=== PATIENT | female | born 1955 | race Caucasian/White ===

== ENCOUNTER 2020-09-04 06:59 | Day surgery (SDC) | payer OTHER, SELFPAY ==
[2020-09-02 13:47] VITALS: BMI 27.4
--- NOTE | 2020-09-03 09:14 | HO.ANESPROP2 ---
Documented by User: Darby Wheeler 09/03/20 09:17 HPI - Anesthesia Eval Consult details Narrative: 65yo F for Upper Endoscopy with Balloon Dilation and Colonoscopy PMFSH Past Medical History Medical History Anxiety Arthritis Depression History of anemia Hyperlipemia Hypothyroidism IBS (irritable bowel syndrome) PTSD (post-traumatic stress disorder) Seasonal allergies Surgical History Surgical History History of cholecystectomy History of esophagogastroduodenoscopy (EGD) Hx of appendectomy Hx of colonoscopy Social History Social History Smoking Status: Never smoker Use of substances other than those prescribed or required for medical reasons: No Are you DNR?: No Advance Directives: No Advance Directives Information Provided: No Advance Directives on File: No Meds Allergies Allergy/AdvReac Type Severity Reaction Status Date / Time codeine Allergy Severe Difficulty Verified 09/02/20 13:44 Breathing Home Medications Medication Instructions Recorded Confirmed Last Taken Type atorvastatin 1 tab PO BEDTIME 08/29/20 09/02/20 Unknown History bupropion HCl 1 tab PO QAM 08/29/20 08/29/20 Unknown History dicyclomine 1 tab PO QID 08/29/20 08/29/20 Unknown History levothyroxine 1 tab PO DAILY 08/29/20 08/29/20 Unknown History aripiprazole 2 tab PO QAM 09/02/20 09/02/20 Unknown History cholecalciferol (vitamin D3) 50 mcg PO DAILY 09/02/20 09/02/20 Unknown History [Vitamin D3] fluoxetine 1 cap PO QAM 09/02/20 09/02/20 Unknown History Exam Exam Date and Time: September 03, 2020 0914 Height,Weight and Vital Signs: Height 5 ft 3 in Weight 70.307 kg Pertinent Lab Results Pertinent Lab Results: Laboratory Tests 08/31/20 20:30 PT TNP INR TNP Assessment and Plan Assessment Anesthesia Assessment: Chart Reviewed Documented by User: Lien Cohen 09/04/20 08:02 PMFSH Past Medical History Medical History Anxiety Arthritis Depression History of anemia Hyperlipemia Hypothyroidism IBS (irritable bowel syndrome) PTSD (post-traumatic stress disorder) Seasonal allergies Surgical History Surgical History History of cholecystectomy History of esophagogastroduodenoscopy (EGD) Hx of appendectomy Hx of colonoscopy Social History Social History Smoking Status: Never smoker Use of substances other than those prescribed or required for medical reasons: No Are you DNR?: No Advance Directives: No Advance Directives Information Provided: No Advance Directives on File: No Meds Allergies Allergy/AdvReac Type Severity Reaction Status Date / Time codeine Allergy Severe Difficulty Verified 09/02/20 13:44 Breathing Home Medications Medication Instructions Recorded Confirmed Last Taken Type atorvastatin 1 tab PO BEDTIME 08/29/20 09/02/20 Unknown History bupropion HCl 1 tab PO QAM 08/29/20 08/29/20 Unknown History dicyclomine 1 tab PO QID 08/29/20 08/29/20 Unknown History levothyroxine 1 tab PO DAILY 08/29/20 08/29/20 Unknown History aripiprazole 2 tab PO QAM 09/02/20 09/02/20 Unknown History cholecalciferol (vitamin D3) 50 mcg PO DAILY 09/02/20 09/02/20 Unknown History [Vitamin D3] fluoxetine 1 cap PO QAM 09/02/20 09/02/20 Unknown History Exam Airway Mallampati Class: II TM Dist: >3cm Neck ROM: Full Assessment and Plan Assessment Anesthesia Assessment: Anesthesia Plan Discussed and Chart Reviewed Final Anesthetic Review NPO: Yes ASA Class: II Final Preanesthetic Review: No Changes in Pt Med Stat, Meds/Allgs Chart Reviewed, Consent Obtained/Reviewed and Anes Risks/Benef Reviewed Patient Risk: Low Procedure Risk: Low Assessment/Block/Sedation in SS: Assess/Block/Sedation-SS Anesthetic Plan Anesthetic Plan: MAC: Disposition: Standard PACU
[2020-09-04 07:45] VITALS: BP 150/71; PULSE 69; RESP 15; TEMP 36.7; O2SAT 96
[2020-09-04 07:46] VITALS: BP 150/71; PULSE 69; RESP 16; TEMP 36.7; O2SAT 96; BMI 27.4
[2020-09-04] MEDS: Lactated Ringers 1,000 ML 100 ML IVCONT (08:06)
[2020-09-04] MEDS: Sodium Phosphate,Mono-Dibasic 133 ML ENEMA PR (08:06)
--- NOTE | 2020-09-04 08:14 | PC.NURSE ---
fleet enema given. pt concerned that she did not have a bowel movement after taking her ducolax. dr baez aware and to give enema. Enema given, patient tolerated well. enema results, yellow liquid
[2020-09-04 09:35] VITALS: BP 152/69; PULSE 70; RESP 16; TEMP 36.7; O2SAT 97
--- NOTE | 2020-09-04 09:40 | PM.OP ---
Brief Operative Note Date of Service: 09/04/20 Pre-op diagnosis: Dysphagia, Screening Post-op diagnosis: other (Hiatal hernia, Gastric polyps, R/O EOE, Colon polyp) Procedure: EGD with biopsies and Balloon Dilation, Colonoscopy to the cecum and TI with biopsy and removal of polyp Surgeon: Ashok Garcia Anesthesia: MAC Was an Commercial Sewing Instructor used for this Procedure?: No Estimated blood loss (mL): 5.0 Pathology: other (A. Esophagus at 25cm B. Gastric polyps C. Ascending colon polyp) Condition: stable Disposition: PACU
[2020-09-04 09:49] VITALS: BP 136/62; PULSE 64; RESP 18; O2SAT 94
[2020-09-04 10:04] VITALS: BP 126/60; PULSE 62; RESP 18; O2SAT 98
--- NOTE | 2020-09-04 15:25 | OP_ITS ---
SURGEON: Ashok Garcia MD INDICATIONS: The patient presents for evaluation of intermittent dysphagia, personal history of colon polyps, and colorectal cancer screening. Full consent has been obtained from her for this, including risks of bleeding and perforation. PREOPERATIVE DIAGNOSIS: POSTOPERATIVE DIAGNOSIS: PROCEDURE PERFORMED: Esophagogastroduodenoscopy with balloon dilation of gastroesophageal junction and biopsies, and colonoscopy to the cecum and terminal ileum with biopsy and removal of polyp. ESTIMATED BLOOD LOSS: COMPLICATIONS: ANESTHESIA: Monitored anesthesia care. ASSISTANTS: SPECIMENS: PREOPERATIVE DIAGNOSES: Dysphagia, history of colon polyps, and colorectal cancer screening. POSTOPERATIVE DIAGNOSES: Dysphagia, history of colon polyps, and colorectal cancer screening, small hiatal hernia, rule out eosinophilic esophagitis, gastric polyps, colon polyp, diverticulosis, and internal and external hemorrhoids. DESCRIPTION OF PROCEDURE: The patient was placed in the left lateral decubitus position. The Olympus video gastroscope was passed in the posterior oropharynx and upper esophagus under direct vision. The scope was passed slowly into the distal esophagus. The gastroesophageal junction appeared at 35 cm. There was no sign of any esophagitis nor Paez's esophagus. There was no definitive stricture nor ring noted. The scope easily entered into the stomach. There was a small hiatal hernia. The scope was advanced to pylorus and the duodenum was cannulated to the descending portion. The duodenum including the bulb appeared normal without mass or ulceration. The scope was withdrawn back into the stomach. The gastric antrum and body appeared normal with good peristalsis. The scope was retroflexed visualizing the proximal stomach carefully, which appeared normal, without any mass or ulceration, other than some hyperplastic appearing gastric polyps. The scope was straightened. The scope was withdrawn back into the esophagus. Given her symptomatology, I did use a [employer] incremental balloon to dilate the gastroesophageal junction from an 18 mm to a 19 mm to a 20 mm balloon at the recommended pressure for between 30 and 60 seconds each. Post dilation, there was some heme noted. The entire esophagus was carefully inspected and appeared normal without any mucosal abnormalities, proximal esophageal rings, nor any other abnormalities. Biopsies were obtained at 25 cm. The scope was advanced back into the stomach. Biopsies were obtained from two of the gastric polyps. The scope was withdrawn back into the esophagus. The scope was withdrawn from the patient. She was turned around for the colonoscopy. The digital rectal exam revealed no abnormalities. The Olympus video pediatric colonoscope was entered into the rectum and advanced to the cecum with the assistance of abdominal wall pressure. Once in the cecum, I did identify normal-appearing cecal pouch with appendiceal orifice and a normal-appearing ileocecal valve. The terminal ileum was cannulated and appeared normal. Scope was withdrawn back in the colon. The entire cecum and ileocecal valve appeared normal. The scope was then slowly withdrawn assessing all mucosal surfaces carefully. Preparation was excellent. The ascending colon was a flat approximately 4 mm polyp, which was biopsied and completely removed with cold biopsy forceps. I did not visualize any other polyps, colitis, nor angiodysplasia. There was a mild amount of sigmoid diverticulosis. In the rectum, scope was retroflexed visualizing internal hemorrhoids, but no other pathology. The rectal mucosa appeared normal. The scope was straightened out and withdrawn from the patient. She tolerated both procedures well and was returned to the recovery area in stable condition. IMPRESSION: 1. Small hiatal hernia. 2. Gastric polyps. 3. Rule out eosinophilic esophagitis. 4. Status post balloon dilation of gastroesophageal junction. 5. Colon polyp. 6. Diverticulosis. 7. Internal and external hemorrhoids. PLAN: The results of the biopsy will be checked. I would recommend a repeat colonoscopy in 5 years. I will start her on omeprazole 20 mg daily in regard to today's procedure and her symptoms of dysphagia to treat any component of reflux and esophageal spasm. She was advised not to use any aspirin and NSAIDs for 1 week. She was advised to see me in 2 to 3 months for a followup visit. MD RAYO Jackson/BLU / [id number]
--- NOTE | 2020-09-04 16:13 | PC.NURSE ---
1010 AWAKE ALERT DENG PO MONITORS AND IVF DC ASST OOB CH STEADY IV DC DRESSED SELF AT BS CALL THORNTON IN REACH
== END 2020-09-04 11:06 | disposition home or self-care (01) ==
PROVIDERS: PCP Physician Assistant; Visit Provider Internal Medicine
PROC: (CPT 45380; principal; 2020-09-04 08:20)
PROC: 0DJD8ZZ Inspection of Lower Intestinal Tract, Via Natural or Artificial Opening Endoscopic (ICD-10-PCS; CPT 45378; 2020-09-04 08:20)
DX: Z12.11 Encounter for screening for malignant neoplasm of colon (principal); Z86.010 Personal history of colon polyps; D12.2 Benign neoplasm of ascending colon; K57.30 Diverticulosis of large intestine without perforation or abscess without bleeding; K64.8 Other hemorrhoids; K58.9 Irritable bowel syndrome, unspecified; R13.14 Dysphagia, pharyngoesophageal phase; K44.9 Diaphragmatic hernia without obstruction or gangrene; K20.80 Other esophagitis without bleeding; K31.7 Polyp of stomach and duodenum; Z90.49 Acquired absence of other specified parts of digestive tract
CPT/HCPCS: 45380; 43249; 43239; 36415; 88305; 88342; C1726

== ENCOUNTER 2022-07-01 09:13 | Outpatient (REF) | payer MEDICARE, SELFPAY ==
--- NOTE | ~2022-07-01 | FL_ITS ---
EXAMINATION: FL BARIUM SWALLOW CLINICAL INFORMATION: Esophageal dysphagia. COMPARISON: None TECHNIQUE: Barium swallow examination is performed using fluoroscopic evaluation in addition to multiple fluoroscopic spot views, including cine images during swallowing. The patient is imaged both upright and prone and using both thick and thin sulfate along with effervescent granules. Barium pill challenge also performed. Fluoroscopy time: 2.8 minutes DAP: 12.6 Gycm2 Images: 35 FINDINGS: Swallowing function appears normal and there is no aspiration. The cervical esophagus has no web or diverticulum or stricture. The cervical thoracic junction appears normal. The thoracic esophagus shows decreased primary peristaltic activity but without tertiary contractions. There is no obstruction, stricture, or ulceration. There is no hiatal hernia despite use of prone Valsalva. There is spontaneous*esophageal reflux during fluoroscopy to proximal thoracic esophagus. A cursory view of the upper abdomen shows no gastric outlet obstruction. Barium pill challenge reveals persistent stasis of the barium pill within the lower cervical esophagus approximately level of C6. This persists despite additional drinking with water. Patient notes that symptoms during barium pill stasis are similar to what is experienced at home. There are degenerative changes cervical spine with variable disc narrowing and anterior vertebral spurring. FL/FL barium swallow IMPRESSION: -Decreased primary esophageal peristalsis. No tertiary contractions. -Spontaneous gastroesophageal reflux to proximal thoracic esophagus. No hiatal hernia. -Prolonged stasis of barium pill within lower cervical esophagus. Patient notes symptoms experienced during barium pill stasis are similar to what is experienced at home.
== END 2022-07-01 09:14 | disposition home or self-care (01) ==
LOC: HO.XRAY 09:13
PROVIDERS: PCP Physician Assistant; Visit Provider Internal Medicine
DX: R13.19 Other dysphagia (principal)
CPT/HCPCS: 74220

== ENCOUNTER 2022-08-03 11:04 | Day surgery (SDC) | payer MEDICARE, SELFPAY ==
--- NOTE | 2022-07-31 13:18 | P.CONAN_ITS ---
HPI - Anesthesia Eval Consult details Narrative: 67yo F for Upper Endoscopy with Balloon Dil[facility] Past Medical History Medical History Anxiety Arthritis Depression History of anemia Hyperlipemia Hypothyroidism IBS (irritable bowel syndrome) PTSD (post-traumatic stress disorder) Seasonal allergies Surgical History Surgical History History of cholecystectomy History of esophagogastroduodenoscopy (EGD) Hx of appendectomy Hx of colonoscopy Meds Allergies Allergy/AdvReac Type Severity Reaction Status Date / Time codeine Allergy Severe Difficulty Verified 09/02/20 13:44 Breathing Home Medications Medication Instructions Recorded Confirmed Last Taken Type atorvastatin 40 mg tablet 1 tab PO BEDTIME 08/29/20 09/02/20 Unknown History bupropion HCl 300 mg 24 hr tablet, 1 tab PO QAM 08/29/20 08/29/20 Unknown History extended release dicyclomine 20 mg tablet 1 tab PO QID 08/29/20 08/29/20 Unknown History levothyroxine 88 mcg tablet 1 tab PO DAILY 08/29/20 09/04/20 09/04/20 History aripiprazole 2 mg tablet 2 tab PO QAM 09/02/20 09/02/20 Unknown History cholecalciferol (vitamin D3) 50 50 mcg PO DAILY 09/02/20 09/02/20 Unknown History mcg (2,000 unit) capsule (Vitamin D3) fluoxetine 10 mg capsule 1 cap PO QAM 09/02/20 09/02/20 Unknown History loratadine 10 mg capsule 10 PRN Allergic Symptoms 09/04/20 09/04/20 History brexpiprazole 0.5 mg tablet 0.5 mg PO DAILY 07/31/22 07/31/22 Unknown History (Rexulti) ferrous sulfate 325 mg (65 mg 325 mg PO QAM 07/31/22 07/31/22 Unknown History iron) tablet ibuprofen PRN Pain 07/31/22 07/31/22 Unknown History lorazepam 0.5 mg tablet 0.5 mg PO DAILY PRN Anxiety 07/31/22 07/31/22 Unknown History mecobalamin (vitamin B12) 1,000 mcg PO 07/31/22 Unknown History mcg chewable tablet (B12 Active) nystatin 100,000 unit/mL oral 1 ml PO QID 07/31/22 07/31/22 Unknown History suspension omeprazole 20 mg capsule,delayed 20 mg PO QAM 07/31/22 07/31/22 Unknown History release trazodone 50 mg tablet 50 mg PO BEDTIME PRN Insomnia 07/31/22 07/31/22 Unknown History Exam Exam Date and Time: July 31, 2022 6757 Assessment and Plan Assessment Anesthesia Assessment: Chart Reviewed
[2022-08-03 07:19] VITALS: BMI 26.5
--- OUTSIDE RECORDS SUMMARY | 2022-08-03 11:06 | XMS_ITS | Continuity of Care Document ---
Author Name Unknown Organization [facility] Address Unknown Care Team Providers Care Calliope Player Name Role Phone Meli Hernandez Primary Care Physicia n Encounter [facility] [place] Date(s): 07/08/21 - 08/07/21 [facility] Attending Physician: Miguel A Kelly Admitting Physician: Miguel A Kelly Referring Physician: Miguel A Kelly Allergies, Adverse Reactions, Alerts Substance Reaction Severity Status codeine sob Active Immunizations Given and Recorded Vaccine Date Status Refusal Reason influenza virus vaccine, inactivated 03/14/13 Give n influenza virus vaccine, inactivated 01/10/09 Give n tetanus/diphtheria/pertussis, acel(Tdap) 04/15/10 Given FluLaval (oldterm) 04/15/10 Given Influenza Virus Vaccine (oldterm) 1 03/20/08 Given tetanus-diphtheria toxoids (Td) 05/10/00 Given 1Admin Note: SANOFI PASTEUR Medications Aripiprazole Refills 0, Maintenance, 12/30/20 11:03:00 EDT, Partial fill upon patient request if the prescription is for a schedule II opioid drug. Start Date: 12/30/20 Status: Ordered atorvastatin 40 mg oral tablet 1 tablet = 40 mg, By Mouth, Daily, 0 Refills, Maintenance, 12/30/20 11:04:00 EDT, Partial fill uponpatient request if the prescription is for a schedule II opioid drug. Start Date: 12/30/20 Status: Ordered Bentyl 20 mg oral tablet 1 tablet = 20 mg, By Mouth, 4 times a day, # 120 tablet, 5 Refills, Maintenance, 01/01/15 14:34:23,1 tablet By Mouth 4 times a day,x30 days Start Date: 01/01/15 Stop Date: 06/30/15 Status: Ordered BuPROpion By Mouth, 0 Refills, Maintenance, 12/30/20 11:04:00 EDT, Partial fill upon patient request if the prescription is for a schedule II opioid drug. Start Date: 12/30/20 Status: Ordered Cyanocobalamin 0 Refills, Maintenance, 12/30/20 11:04:00 EDT, Partial fill upon patient request if the prescription is for a schedule II opioid drug. Start Date: 12/30/20 Status: Ordered Fish Oil oral capsule = 1,000 mg, By Mouth, 0 Refills Start Date: 09/20/08 Status: Ordered fluoxetine 40 mg oral capsule 1 capsule = 40 mg, By Mouth, Daily, # 30 capsule, 0 Refills, Maintenance, Capsule Start Date: 08/19/11 Status: Ordered folic acid 1 mg oral tablet 1 tablet = 1 mg, By Mouth, Daily, # 30 tablet, 11 Refills, Maintenance, 11/27/13 11:31:54, Tablet, 1 tablet By Mouth Daily Start Date: 11/27/13 Status: Ordered ibuprofen 600 mg oral tablet 1 tablet = 600 mg, By Mouth, 3 times a day, PRN foot pain, with food or milk, # 90 tablet, 1 Refills, Maintenance, 11/27/13 12:04:20, 1 tablet By Mouth 3 times a day,PRN:foot pain,Instr:with food or milk Start Date: 11/27/13 Status: Ordered Levoxyl 0.075 mg oral tablet 1 tablet = 75 mcg, By Mouth, Daily, No further refills without appt or labs., # 30 tablet, 1 Refills, Maintenance, 01/04/15 10:41:27, 1 tablet By Mouth Daily,x30 days,Instr:No further refills withoutappt or labs. Start Date: 01/04/15 Stop Date: 03/05/15 Status: Ordered Lorazepam 0 Refills, Maintenance, 12/30/20 11:04:00 EDT, Partial fill upon patient request if the prescription is for a schedule II opioid drug. Start Date: 12/30/20 Status: Ordered Omeprazole By Mouth, Daily, 0 Refills, Maintenance, 12/30/20 11:05:00 EDT, Partial fill upon patient request if the prescription is for a schedule II opioid drug. Start Date: 12/30/20 Status: Ordered simvastatin 20 mg oral tablet 1 tablet = 20 mg, By Mouth, Daily before dinner, # 30 tablet, 5 Refills, Maintenance, 11/22/14 11:32:41, 1 tablet By Mouth Daily before dinner Start Date: 11/22/14 Status: Ordered trazodone 100 mg oral tablet 0.25 tablet = 25 mg, By Mouth, Daily at bedtime, 0 Refills, Maintenance Start Date: 03/14/13 Status: Ordered Vitamin D3 1000 intl units oral tablet = 1,000 International_Units, By Mouth, Daily, 0 Refills Start Date: 09/20/08 Status: Ordered Problem List Condition Effective Dates Status Health Status Inform ant Adjustment disorder with dep ressed mood(Confirmed) Active Electrocardiogram abnormal(Confirmed) Active Hypercholesterolemia(Confirmed) Active Hypothyroid(Confirmed) Active IBS - Irritable bowel syndrome(Confirmed) Active Iron deficiency anemia(Confirmed) Active Ophthalmic migraine(Confirmed) Active Social History Social History Type Response Smoking Status Never smoker; Tobacc o user in household: Yes 1 entered on: 04/21/13 Sex 1Husband smokes cigars outside
--- OUTSIDE RECORDS SUMMARY | 2022-08-03 11:06 | XMS_ITS | Continuity of Care Document ---
Author Name Unknown Organization [facility] [employer] Address [address], [address], [place] [address]- Care Team Providers Care Manager Of Organizational Development Name Role Phone Meli Hernandez Primary Care Physicia n [id number] Date[facility]/21 - 09/25/21 [facility] [employer] [address], [address] [place] [address]- Attending Physician: Promise Clemons MD Admitting Physician: Promise Clemons MD Referring Physician: Meli Hernandez Allergies, Adverse Reactions, Alerts Substance Reaction Severity [...]
--- OUTSIDE RECORDS SUMMARY | 2022-08-03 11:06 | XMS_ITS | Continuity of Care Document ---
Author Name Unknown Organization [facility] [employer] Address [address], [address], [place] [address]- Care Team Providers Care Inspector And Mender Name Role Phone Meli Hernandez Primary Care Physicia n Encounter [facility] Date(s): 08/26/21 - 09/25/21 [facility] [employer] [employer] [facility] [address], [address] [place] [address]- Attending Physician: Miguel A Kelly Admitting Physician: Miguel A Kelly Referring Physician: AdmtrMiguel A Allergies, Adverse Reactions, Alerts Substance Reaction Severity [...]
--- OUTSIDE RECORDS SUMMARY | 2022-08-03 11:06 | XMS_ITS | Continuity of Care Document ---
Author Name Unknown Organization [facility] Address Unknown Care Team Providers Care Rug Setter Velvet Name Role Phone Meli Hernandez [id number] - [facility]07[facility] Attending Physician: Trixie Lucero MD Admitting Physician: Trixie Lucero MD Allergies, Adverse Reactions, Alerts Substance Reaction Severity [...]
--- OUTSIDE RECORDS SUMMARY | 2022-08-03 11:06 | XMS_ITS | Continuity of Care Document ---
Author Name Unknown Organization [facility] Address Unknown Care Team Providers Care Delivery Technician Name Role Phone Meli Hernandez Primary Care Physicia n [place] [facility] [place] 12[place]30[place]20 - 01/29/21 [facility] Attending Physician: Miguel A Kelly Admitting [...]
--- OUTSIDE RECORDS SUMMARY | 2022-08-03 11:06 | XMS_ITS | Continuity of Care Document ---
Author Name Unknown Organization [facility] er Address [address] [place] [address]- Care Team Providers Care Log Cut Off Sawyer Name Role Phone Meli Hernandez Primary Care Physicia n Encounter [facility] [place] Date(s): 05/28/22 - 06/27/[address] [address] Attending Physician: Myesha Pizano Admitting Physician: Myesha Pizano Allergies, Adverse Reactions, Alerts Substance Reaction Severity [...] Date: 09/20/08 Status: Ordered Problem List Condition Confirmation Course Effective Dates Status Health Status Informant Adjustment disorder with depressed mood Confirmed Active Electrocardiogram abnormal Confirmed Active Hypercholesterolemia Confirmed Active Hypothyroid Confirmed Active IBS - Irritable bowel syndrome Confirmed Active Iron deficiency anemia Confirmed Active Ophthalmic migraine Confirmed Active Social History Social History Type Response Smoking Status Never smoker; Tobacc o user in household: Yes 1 entered on: 04/21/13 Sex 1Husband smokes cigars outside Patient Care team information Care Team Personnel Name: Lucas LINDA, Tonny Position: [facility] Renal MD Member Role: Lifetime Consulting Physician Address: Address[address] [facility] [place] [address]- Name: Meli Hernandez Position: Reference Physician Member Role: PCP Address: Address: [address] [place] [id number] Care Team Related Persons Name: CARL MCCLENDON Address: home [address] [place] [address] [place]
--- OUTSIDE RECORDS SUMMARY | 2022-08-03 11:06 | XMS_ITS | Continuity of Care Document ---
Author Name Unknown Organization [facility] er Address [address] [address]- Care Team Providers Care Endodontic Assistant Name Role Phone Meli Hernandez Primary Care Physicia n Encounter [facility] [place] Date(s): 05/21/22 - 06/20/[address] [address] Attending Physician: Myesha Pizano Admitting Physician: [...] Team Personnel Name: Lucas LINDA, Tonny Position: [facility] Renal MD Member Role: Lifetime Consulting Physician Address: Address[address] [facility] [place] [address]- Name: Meli Hernandez Position: Reference Physician Member Role: PCP Address: Address: [address] [place] [id number] Care Team Related Persons Name: CARL MCCLENDON Address: home [address] [place] [address] [place]
--- OUTSIDE RECORDS SUMMARY | 2022-08-03 11:06 | XMS_ITS | Continuity of Care Document ---
Author Name Unknown Organization [facility] er Address [address] [place] [address]- Care Team Providers Care Project Administrative Assistant Name Role Phone Meli Hernandez Primary Care Physicia n [place] [facility] [place] - 06/27/[address] [address] Attending Physician: Miguel A Kelly Admitting Physician: AdmtrMiguel A Referring Physician: AdmtrMiguel A Allergies, Adverse Reactions, [...] Team Personnel Name: Lucas LINDA, Tonny Position: [facility] Renal MD Member Role: Lifetime Consulting Physician Address: Address: [address] [place] [address] [address] [facility] [place] [address]- Name: Meli Hernandez Position: Reference Physician Member Role: PCP Address: Address: [address] [place] [address]- Care Team Related Persons Name: CARL MCCLENDON Address: home [address] [place] [address] [place]
--- OUTSIDE RECORDS SUMMARY | 2022-08-03 11:06 | XMS_ITS ---
Author Name Ashok Garcia Address [address] [place] [address] Organization [facility] Address [address] [place] [address] Care Team Providers Care Taker Off Hemp Fiber Name Role Phone Ashok Garcia [facility] [phone] PROBLEMS Type Condition ICD9-CM Code XBJ98-LD Code Onset Dates Condition Status SNOMED Code Problem Esophageal dysphagia R13.19 Active 408 35207 Problem Abnormal barium swallow R93.3 Active [id number] Problem Encounter for screening for malignant neoplasm of colon Z12.11 Active 156947114 Problem History of adenomato us polyp of colon Z86.010 Active 166074099 Problem Pharyngoesophageal dysphagia R13.14 Active 21185853 Problem Irritable bowel syndrome, unspecified type K58.9 Active 53993123 ALLERGIES Substance Reaction Event Type Date Status Codeine Sulfate Unknown Drug Allergy Jul, Activ e ENCOUNTERS Encounter Location Date Diagnosis [facility] Outpatient [address], [place] [id number] Aug, [facility] [address] [place] [id number] Jul, Pharyngoesophageal dysphagia R13.14 ; History of adenomatous polyp of colon Z86.010 ; Encounter for screening for malignant neoplasm of colon Z12.11 ; Irritable bowel syndrome, unspecified type K58.9 and Abnormal barium swallow R93.3 [facility] [address] [place] [address] Jun, Esophageal dysphagia R13.19 [facility] Outpatient [address], [place] [id number] August, Colon polyp K63.5 ; Colon, diverticulosis K57.30 ; Other hemorrhoids K64.8 ; Dysphagia R13.10 ; Hernia, hiatal K44.9 and Gastric polyp K31.7 [facility] [address] [place] [address] Aug, Irritable bowel syndrome, unspecified type K58.9 ; Pharyngoesophageal dysphagia R13.14 ; History of adenomatous polyp of colon Z86.010 and Encounter for screening for malignant neoplasm of colon Z12.11 IMMUNIZATIONS Vaccine Route Administration Date Status Influenza Unknown Feb 17, 2022 Administered Influenza Unknown Jan 02, 2020 Administered SOCIAL HISTORY Qualifiers Date Never Smoker REASON FOR REFERRAL FUNCTIONAL STATUS PLAN OF CARE Activity Details VITAL SIGNS Weight 150 lbs 2022-07-10 Weight 155 lbs 2020-08-02 Height 63 in 2022-07-10 Height 63 in 2020-08-02 BMI 26.57 kg/m2 2022-07-10 BMI 27.45 kg/m2 2020-08-02 Temperature 98.9 degrees Fahrenheit Temperature 99.1 degrees Fahrenheit Blood pressure systolic 000 mm Hg Blood pressure diastolic 00 mm Hg 2022-07 MEDICATIONS Medication Instructions Dosage Frequency Start Date End Date Duration Status Vitamin D3 50 MCG (1999) Orally Once a day 1 tablet 24h Active Ferrous Sulfate 325 MG as directed Active Dicyclomine HCl 20 MG TAKE 1 TABLET BY MOUTH FOUR TIMES A DAY Active Rexulti 0.5 MG Orally Once a day 1 tablet 24h 30 day(s) Active ARIPiprazole 2 MG TAKE 2 TABLETS BY MOUTH EVERY MORNING 90 Not-Taki ng Cholecalciferol- Vitamin C 1000-500 UNIT-MG as directed A ctive Atorvastatin Calcium 40 MG TAKE 1 TABLET BY MOUTH EVERY DAY 90 Active buPROPion HCl ER (XL) 300 MG TAKE 1 TABLET BY MOUTH EVERY DAY IN THE MORNING 90 Active traZODone HCl 50 MG Orally Once a day 1 tablet at bedtime 24h Active LORazepam 0.5 MG (Schedule IV Drug) TAKE 1/2 TO 1 TABLET BY MOUTH DAILY NEEDED 30 Active Ibuprofen Active Levothyroxine Sodium 88 MCG Orally Once a day TAKE 1 TABLET BY MOUTH EVERY DAY IN THE MORNING 24h Active Loratadine 10 MG/10ML as directed Active Omeprazole 20 MG TAKE 1 CAPSULE BY MOUTH EVERY DAY IN THE MORNING Active Vitamin B 12 1000 Orally Once a day 1 tablet 24h Active FLUoxetine HCl 40 MG Orally Once a day 1 capsule 24h Active Nystatin 701106 UNIT/ML Mouth/Throat Four times a day 4 mL 6h 30 day(s) Active PROCEDURES Procedure Date Ordered Result Body Site TOBACCO NON-USER August 02, 2020 DOC MEDS VERIFIED W/PT OR RE August 02, 2020 TOBACCO NON-USER July 10, 2022 DOC MEDS VERIFIED W/PT OR RE July 10, 2022 UPPER GI ENDOSCOPY, BIOPSY September 04, 2020 ESOPH ENDOSCOPY, DILATION September 04, 2020 COLORECTAL CA SCREEN DOC REV August 02, 2020 COLORECTAL CA SCREEN DOC REV July 10, 2022 BP SCR PRFRM RCMDD DEFIND SCR INTVL August 02, 2020 BP SCR NOT PRFRM REC REASON NOS July 10, 2022 COLONOSCOPY AND BIOPSY September 04, 2020 RESULTS Name Result Date Reference Range FL barium swallow 2022-07-01 Pathology 2020-09-04 Prothrombin Time INR 2020-08-31 Prothrombin Time TNP 10.8-13.0 INTERNATIONAL NORM RATIO TNP 0.9 -1.1 REASON FOR VISIT pharyngoesophageal dysphagia, dysphagia, hx polyps,screening,dysphagia, patient presents today for IBS, trouble swallowing Insurance Providers Health Insurance Type Health Plan Insurance Address Health Plan Insurance Phone Health Plan Insurance Name Health Plan Coverage Dates Member ID Patient Relationship to Subscriber Patient Address Patient Phone Patient Name Patient Date of Subscriber ID Subscriber Name Subscriber Date of Group No MEDICAID OF [employer] [address] [facility] [address] MEDICAID OF [employer] self KEHINDE MCCLENDON [id number] MEDEX ATTN CLAIMS [address] [facility] [address] MEDEX self KEHINDE MCCLENDON [id number] KAYE TOGETHER [address] [facility] [address] KAYE TOGETHER self KEHINDE MCCLENDON [id number] [place] [address] [facility] [address] [place] KEHINDE MCCLENDON [id number]
--- OUTSIDE RECORDS SUMMARY | 2022-08-03 11:06 | XMS_ITS | Continuity of Care Document ---
Author Name Unknown Organization [facility] Address [address], [address], [address] [place] [address]- Care Team Providers Care Med Admin Name Role Phone Meli Hernandez Primary Care Physicia n Encounter [facility] Date(s): 10/15/20 - 11/14/20 [facility] [address], [address], [address] [place] [address]- Allergies, Adverse Reactions, Alerts Substance Reaction Severity Status codeine sob Active Immunizations Given and Recorded Vaccine Date Status Refusal Reason influenza virus vaccine, inactivated 03/14/13 Give n influenza virus vaccine, inactivated 01/10/09 Give n tetanus/diphtheria/pertussis, acel(Tdap) 04/15/10 Given FluLaval (oldterm) 04/15/10 Given Influenza Virus Vaccine (oldterm) 1 03/20/08 Given tetanus-diphtheria toxoids (Td) 05/10/00 Given 1Admin Note: SANOFI PASTEUR Medications Bentyl 20 mg oral tablet 1 tablet = 20 mg, By Mouth, 4 times a day, # 120 tablet, 5 Refills, Maintenance, 01/01/15 14:34:23,1 tablet By Mouth 4 times a day,x30 days Start Date: 01/01/15 Stop Date: 06/30/15 Status: Ordered Fish Oil oral capsule = [...] Date: 01/04/15 Stop Date: 03/05/15 Status: Ordered simvastatin 20 mg oral tablet [...]
[2022-08-03 11:08] VITALS: BP 102/81; PULSE 79; RESP 20; TEMP 36.1; O2SAT 98
[2022-08-03] MEDS: Lactated Ringers 1,000 ML 100 ML IVCONT (11:37)
--- NOTE | 2022-08-03 12:54 | HO.ANESPROP2 ---
[facility] Past Medical History Medical History Anxiety Arthritis Depression History of anemia Hx of kidney disease Hyperlipemia Hypothyroidism IBS (irritable bowel syndrome) PTSD (post-traumatic stress disorder) Seasonal allergies Surgical History Surgical History History of cholecystectomy History of esophagogastroduodenoscopy (EGD) Hx of appendectomy Hx of colonoscopy History of Problems with Anesthesia: No Social History Social History Patient Tobacco Use Status: Never used Tobacco Are you DNR?: No Advance Directives: No Advance Directives Information Provided: Yes Recently lost weight without trying: No Nutrition Risks: No Nutritional Risk Meds Allergies Allergy/AdvReac Type Severity Reaction Status Date / Time codeine Allergy Severe Difficulty Verified 09/02/20 13:44 Breathing Active Medications: Current Medications Lactated Ringer's (Lr) 1,000 mls @ 100 mls/hr IVCONT .Q10H GAB Last Admin: 08/03/22 11:37 Dose: 100 mls/hr Home Medications Medication Instructions Recorded Confirmed Last Taken Type atorvastatin 40 mg tablet 1 tab PO BEDTIME 08/29/20 09/02/20 08/02/22 History bupropion HCl 300 mg 24 hr tablet, 1 tab PO QAM 08/29/20 08/29/20 08/03/22 History extended release dicyclomine 20 mg tablet 1 tab PO QID 08/29/20 08/29/20 08/03/22 History levothyroxine 88 mcg tablet 1 tab PO DAILY 08/29/20 09/04/20 08/03/22 History fluoxetine 10 mg capsule 1 cap PO QAM 09/02/20 09/02/20 08/03/22 History brexpiprazole 0.5 mg tablet 0.5 mg PO DAILY 07/31/22 07/31/22 08/03/22 History (Rexulti) ferrous sulfate 325 mg (65 mg 325 mg PO QAM 07/31/22 07/31/22 08/01/22 History iron) tablet ibuprofen PRN Pain 07/31/22 07/31/22 06/15/22 History omeprazole 20 mg capsule,delayed 20 mg PO QAM 07/31/22 07/31/22 08/03/22 History release Exam Exam Date and Time: August 03, 2022 1254 Height,Weight and Vital Signs: Height 5 ft 3 in Weight 68.039 kg Last Vital Signs Temp 96.9 F 08/03/22 11:08 Pulse 79 08/03/22 11:08 Resp 20 08/03/22 11:08 BP 102/81 08/03/22 11:08 Pulse Ox 98 08/03/22 11:08 O2 Del Method Room Air 08/03/22 11:08 Airway Mallampati Class: II TM Dist: >3cm Neck ROM: Full Denture: Upper Partial: Lower Loose/Missing/Broken Teeth: Yes, Upper and Lower Heart: RRR Lungs: CTA Assessment and Plan Assessment Anesthesia Assessment: Anesthesia Plan Discussed and Chart Reviewed Final Anesthetic Review History of Problems with Anesthesia: No NPO: Yes ASA Class: II Final Preanesthetic Review: Meds/Allgs Chart Reviewed, Consent Obtained/Reviewed and Anes Risks/Benef Reviewed Patient Risk: Low Procedure Risk: Intermediate Anesthetic Plan Anesthetic Plan: MAC: Disposition: Standard PACU
[2022-08-03 13:30] VITALS: BP 113/86; PULSE 69; RESP 16; TEMP 36.8; O2SAT 96
--- NOTE | 2022-08-03 13:34 | PM.OP ---
Brief Operative Note Date of Service: 08/03/22 Pre-op diagnosis: Dysphagia Post-op diagnosis: other (Hiatal hernia) Procedure: EGD with Balloon dilation of EG Junction with an 18 to 19mm balloon. Surgeon: Ashok Garcia Anesthesia: MAC Was an High Pressure Kettle Operator used for this Procedure?: No Estimated blood loss (mL): 2.0 Pathology: none sent Condition: stable Disposition: PACU
[2022-08-03 13:45] VITALS: BP 101/68; PULSE 68; RESP 16; TEMP 36.8; O2SAT 97
--- NOTE | 2022-08-03 15:12 | OP_ITS ---
DATE OF SERVICE: 08/03/2022 SURGEON: Ashok Garcia MD INDICATIONS: The patient presents for evaluation of gastroesophageal reflux and dysphagia. Full consent has been obtained from her for this, including risks of bleeding and perforation. PREOPERATIVE DIAGNOSIS: POSTOPERATIVE DIAGNOSIS: PROCEDURE PERFORMED: Esophagogastroduodenoscopy with balloon dilation of gastroesophageal junction. ESTIMATED BLOOD LOSS: COMPLICATIONS: ANESTHESIA: Monitored anesthesia care. ASSISTANTS: SPECIMENS: PREOPERATIVE DIAGNOSES: Dysphagia and reflux. POSTOPERATIVE DIAGNOSES: Dysphagia and reflux, small hiatal hernia. DESCRIPTION OF PROCEDURE: The patient was placed in the left lateral decubitus position. The Olympus video gastroscope was passed in the posterior oropharynx under direct vision. Evaluation of the upper esophageal sphincter with insufflation of air did not reveal any sign of a ring, web nor stricture. There was no inflammation. The scope easily entered the proximal esophagus. The scope was advanced to the gastroesophageal junction at 36 cm. There was no sign of any esophagitis nor Paez's esophagus. With insufflation of air, I did not appreciate any definitive esophageal ring nor stricture. The scope easily entered into the stomach. There was a small hiatal hernia. The scope was advanced to the pylorus and the duodenum was cannulated to the descending portion. The duodenum including the bulb appeared normal without mass or ulceration. The scope was withdrawn back in the stomach. The gastric antrum and body appeared normal with good peristalsis. The scope was retroflexed visualizing the proximal stomach carefully, which appeared normal, without any sign of mass or ulceration. The scope was straightened and then withdrawn back into the esophagus. The entire esophagus was carefully inspected and there did not appear to be any sign of stricture, rings, nor webs. I did use a [place] [employer] scientific incremental balloon to dilate the gastroesophageal junction from 18 mm to 19 mm at the recommended pressure for 60 seconds each. Post dilation, there was some heme noted. The upper esophageal sphincter was again carefully inspected with insufflation of air. I did not appreciate any type of narrowing that would require dilation. The scope was withdrawn from the patient. She tolerated the procedure well and was returned to the recovery area in stable condition. IMPRESSION: 1. Hiatal hernia. 2. Status post balloon dilation of gastroesophageal junction. PLAN: The patient will continue her daily omeprazole. We shall see if today's procedure gives her any symptomatic relief. If she is doing well, she could see me on a p.r.n. basis. If she continues to have significant problems, then we may want to proceed with esophageal motility studies. She was instructed to call me as needed. MD RAYO Jackson/BLU / [phone] MTDD
== END 2022-08-03 14:24 | disposition home or self-care (01) ==
PROVIDERS: PCP Physician Assistant; Visit Provider Internal Medicine
PROC: (CPT 43249; principal; 2022-08-03 13:40)
DX: R13.14 Dysphagia, pharyngoesophageal phase (principal); K58.9 Irritable bowel syndrome, unspecified; K44.9 Diaphragmatic hernia without obstruction or gangrene; K21.9 Gastro-esophageal reflux disease without esophagitis; R93.3 Abnormal findings on diagnostic imaging of other parts of digestive tract; N18.9 Chronic kidney disease, unspecified; E78.5 Hyperlipidemia, unspecified; E03.9 Hypothyroidism, unspecified; F43.10 Post-traumatic stress disorder, unspecified; F41.1 Generalized anxiety disorder; Z79.899 Other long term (current) drug therapy; Z88.8 Allergy status to other drugs, medicaments and biological substances; Z90.49 Acquired absence of other specified parts of digestive tract
CPT/HCPCS: 43249; C1726

== ENCOUNTER 2023-08-19 10:15 | Outpatient (REF) | payer MEDICARE, SELFPAY ==
--- NOTE | ~2023-08-19 | FL_ITS ---
EXAMINATION: XR FLUOROSCOPY BARIUM SWALLOW CLINICAL INFORMATION: Dysphagia COMPARISON: Barium swallow July 2022 TECHNIQUE: Fluoroscopic air contrast upper GI examination was performed utilizing standard techniques with thin and thick barium and effervescent granules. Numerous spot images were obtained. FINDINGS: Lateral cine images of the oropharynx and hypopharynx demonstrate normal swallow mechanism with normal epiglottic inversion and soft palate elevation. No tracheal penetration, glottic or subglottic aspiration identified. No nasopharyngeal reflux present. Hypopharyngeal structures appear normal without evidence of mass or diverticulum. 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 After swallowing the barium tablet, the tablet remained in the upper esophagus at the C6-C7 level despite drinking additional water. Because of the delay is not readily apparent, although there is a slight indentation in the anterior cervical esophagus at this level, possibly a web or remnant of a web (RF 1-6, image 26 of 108; RF 1-7, image 31). There is also mild short segment narrowing at this level, possibly a congenital or very mild benign stricture. After 30 minutes the patient felt that the tablet had passed and new Spot images demonstrated the tablet no longer present in the upper esophagus. Dual and single contrast images of the esophagus demonstrate normal caliber, contour, and mucosal pattern. No evidence of stricture, mass, or ulcerations identified. There is to and fro motion of the barium column with nonpropulsive tertiary contractions noted throughout the esophagus. A small type I hiatal hernia is present. No significant gastroesophageal reflux was seen during the course of the examination and on reflux views. Dual contrast and single contrast images of the stomach demonstrated a normal contour. Evaluation the gastric mucosa is limited due to lack of distention from poor tolerance of the effervescent granules. The patient could not retain gas for distention, limiting visualization. No obvious masses or ulcerations are present. Contrast freely passed into the gastric antrum and duodenal bulb without delay. Single and air-contrast images of the duodenal bulb demonstrate no abnormality. The duodenal sweep has a normal appearance, course, and mucosal fold appearance. The proximal jejunum was not well imaged. Mild calcifications of the aortic arch noted. FLUOROSCOPY TIME: 5 minutes 28 seconds Number of Spot Images: 5 Number of Cine: 11 DOSE AREA PRODUCT: 1350 uGy-m2 (microgray-meter squared) FL/FL barium swallow IMPRESSION: 1. Esophageal dysmotility 2. Significant delay in the passage of the barium tablet after 30 minutes. The tablet was no longer visible in the cervical esophagus after 30 minutes. This may have passed spontaneously, or dissolved. The cause of the delay is not definitively apparent although there is a slight indentation in the anterior cervical esophagus at this level, possibly a web or remnant of a web. There is also mild short segment narrowing at this level, possibly a congenital or very mild benign stricture. In addition there was minimal cricopharyngeal achalasia present. This is a repeat of recurrences in July examination of 2022. Recommend correlating with direct visualization with EGD. 3. Small type I hiatal hernia 4. Limited evaluation of the gastric mucosa due to lack of distention from poor tolerance of the effervescent granule gas, of which the patient expelled. No obvious masses or ulcerations are present. This procedure was performed by Madi Morel PA-C, and supervised by Dr. Eddy
== END 2023-08-19 10:16 | disposition home or self-care (01) ==
LOC: HO.XRAY 10:15
PROVIDERS: PCP Physician Assistant; Visit Provider Internal Medicine
DX: R13.19 Other dysphagia (principal)
CPT/HCPCS: 74220

== ENCOUNTER → 2023-08-19 10:17 | Outpatient (BNV) | payer MEDICARE, SELFPAY | PROVIDERS: PCP Physician Assistant; Visit Provider Physician Assistant Surgical | DX: R13.10 Dysphagia, unspecified (principal) | CPT/HCPCS: 74246 ==

== ENCOUNTER 2023-10-07 12:08 | Day surgery (SDC) | payer MEDICARE, SELFPAY ==
[2023-10-05 14:16] VITALS: BMI 26.6
--- NOTE | 2023-10-05 15:10 | P.CONAN_ITS ---
Documented by User: Darby Wheeler NP 10/05/23 15:11 HPI - Anesthesia Eval Consult details Narrative: 68yo F For Upper Endoscopy with Balloon Dilitation s/p same 2022 with [facility] Past Medical History Medical History Hx of kidney disease History of anemia Arthritis Seasonal allergies Hypothyroidism IBS (irritable bowel syndrome) PTSD (post-traumatic stress disorder) Anxiety Depression Hyperlipemia Surgical History Surgical History Hx of hysterectomy, total Hx of appendectomy History of cholecystectomy History of esophagogastroduodenoscopy (EGD) Hx of colonoscopy History of Problems with Anesthesia: No Social History Social History Patient Tobacco Use Status: Never used Tobacco Are you DNR?: No Advance Directives: No Advance Directives Information Provided: Yes Meds Allergies Allergy/AdvReac Type Severity Reaction Status Date / Time codeine Allergy Severe Difficulty Verified 09/02/20 13:44 Breathing Home Medications ?Medication ?Instructions ?Recorded ?Confirmed ?Last Taken ?Type atorvastatin 40 mg tablet 1 tab PO BEDTIME 08/29/20 10/05/23 08/02/22 History bupropion HCl 300 mg 24 hr tablet, 1 tab PO QAM 08/29/20 10/05/23 08/03/22 History extended release dicyclomine 20 mg tablet 1 tab PO QID 08/29/20 10/05/23 08/03/22 History levothyroxine 88 mcg tablet 1 tab PO DAILY 08/29/20 10/05/23 08/03/22 History fluoxetine 10 mg capsule 30 mg PO BEDTIME 09/02/20 10/05/23 08/03/22 History brexpiprazole 0.5 mg tablet 0.5 mg PO DAILY 07/31/22 10/05/23 08/03/22 History (Rexulti) ferrous sulfate 325 mg (65 mg 325 mg PO QAM 07/31/22 10/05/23 09/29/23 History iron) tablet omeprazole 20 mg capsule,delayed 20 mg PO QAM 07/31/22 10/05/23 08/03/22 History release benzonatate 200 mg capsule 200 mg PO TID PRN cough 10/05/23 10/05/23 Unknown History ferrous sulfate 325 mg (65 mg 325 mg PO QAM 10/05/23 10/05/23 09/29/23 History iron) tablet ibuprofen 200 mg tablet 400 mg PO Q6H PRN Pain 10/05/23 10/05/23 09/29/23 History Exam Height,Weight and Vital Signs: Height 5 ft 3 in Weight 68.039 kg Assessment and Plan Assessment Anesthesia Assessment: Chart Reviewed Final Anesthetic Review History of Problems with Anesthesia: No Documented by User: Shakira Moeller MD 10/07/23 13:55 PMFSH Past Medical History Medical History Hx of kidney disease History of anemia Arthritis Seasonal allergies Hypothyroidism IBS (irritable bowel syndrome) PTSD (post-traumatic stress disorder) Anxiety Depression Hyperlipemia Surgical History Surgical History Hx of hysterectomy, total Hx of appendectomy History of cholecystectomy History of esophagogastroduodenoscopy (EGD) Hx of colonoscopy Social History Social History Patient Tobacco Use Status: Never used Tobacco Are you DNR?: No Advance Directives: No Advance Directives Information Provided: Yes Meds Allergies Allergy/AdvReac Type Severity Reaction Status Date / Time codeine Allergy Severe Difficulty Verified 09/02/20 13:44 Breathing Home Medications ?Medication ?Instructions ?Recorded ?Confirmed ?Last Taken ?Type atorvastatin 40 mg tablet 1 tab PO BEDTIME 08/29/20 10/05/23 08/02/22 History bupropion HCl 300 mg 24 hr tablet, 1 tab PO QAM 08/29/20 10/05/23 08/03/22 History extended release dicyclomine 20 mg tablet 1 tab PO QID 08/29/20 10/05/23 08/03/22 History levothyroxine 88 mcg tablet 1 tab PO DAILY 04/10/05/23 08/03/22 History fluoxetine 10 mg capsule 30 mg PO BEDTIME 09/02/20 10/05/23 08/03/22 History brexpiprazole 0.5 mg tablet 0.5 mg PO DAILY 07/31/22 10/05/23 08/03/22 History (Rexulti) ferrous sulfate 325 mg (65 mg 325 mg PO QAM 07/31/22 10/05/23 09/29/23 History iron) tablet omeprazole 20 mg capsule,delayed 20 mg PO QAM 07/31/22 10/05/23 08/03/22 History release benzonatate 200 mg capsule 200 mg PO TID PRN cough 10/05/23 10/05/23 Unknown History ferrous sulfate 325 mg (65 mg 325 mg PO QAM 10/05/23 10/05/23 09/29/23 History iron) tablet ibuprofen 200 mg tablet 400 mg PO Q6H PRN Pain 10/05/23 10/05/23 09/29/23 History Exam Airway Mallampati Class: II TM Dist: >3cm Neck ROM: Full Loose/Missing/Broken Teeth: Yes, Upper and Lower Heart: RRR Lungs: CTA Assessment and Plan Assessment Anesthesia Assessment: Anesthesia Plan Discussed Final Anesthetic Review NPO: Yes ASA Class: II Final Preanesthetic Review: Meds/Allgs Chart Reviewed, Consent Obtained/Reviewed and Anes Risks/Benef Reviewed Patient Risk: Low Procedure Risk: Intermediate Anesthetic Plan Anesthetic Plan: MAC: Disposition: Standard PACU
[2023-10-07 12:19] VITALS: BP 138/92; PULSE 74; RESP 20; TEMP 36.6; O2SAT 97; BMI 26.9
[2023-10-07 12:26] VITALS: BP 118/56
[2023-10-07] MEDS: Lactated Ringers 1,000 ML 100 ML IVCONT (12:32)
[2023-10-07 14:23] VITALS: BP 98/48; PULSE 71; RESP 18; TEMP 36.2; O2SAT 99
--- NOTE | 2023-10-07 14:30 | P.BOP_ITS ---
Brief Operative Note Date of Service: 10/07/23 Pre-op diagnosis: Dysphagia Post-op diagnosis: other (Hiatal hernia) Procedure: EGD with Balloon Dilation Surgeon: Ashok Garcia MD Anesthesia: MAC Was an Supervisor Slashing Department used for this Procedure?: No Estimated blood loss (mL): 2.0 Pathology: none sent Condition: stable Disposition: PACU
[2023-10-07 14:43] VITALS: BP 114/59; PULSE 72; RESP 18; TEMP 36.2; O2SAT 97
--- NOTE | 2023-10-08 00:56 | OP_ITS ---
DATE OF SERVICE: 10/07/2023 SURGEON: Ashok Garcia MD INDICATIONS: The patient presents for evaluation of dysphagia. Full consent has been obtained from her for this, including risks of bleeding and perforation. PREOPERATIVE DIAGNOSIS: Dysphagia. POSTOPERATIVE DIAGNOSIS: PROCEDURE PERFORMED: Esophagogastroduodenoscopy with balloon dilation of gastroesophageal junction. ESTIMATED BLOOD LOSS: COMPLICATIONS: ANESTHESIA: Monitored anesthesia care. ASSISTANTS: SPECIMENS: POSTOPERATIVE DIAGNOSES: Dysphagia, hiatal hernia. DESCRIPTION OF PROCEDURE: The patient was placed in the left lateral decubitus position. The Olympus video gastroscope was passed in the posterior oropharynx and upper esophagus under direct vision. There was no difficulty in intubating the proximal esophagus. The upper esophageal sphincter appeared patent. The proximal esophagus was carefully inspected with insufflation of air and there did not appear to be any narrowing, ring, nor web. There was no sign of any stricture nor mucosal abnormality. The scope easily advanced to the gastroesophageal junction at 35 cm with insufflation of air. This area also appeared normal with good patency and allowing easy passage of the scope into the stomach. There was a small hiatal hernia. The scope was advanced to pylorus and the duodenum was cannulated to the descending portion. The duodenum including the bulb appeared normal without mass or ulceration. The scope was withdrawn back into the stomach. The gastric antrum and body appeared normal with good peristalsis. The scope was retroflexed visualizing the proximal stomach carefully which appeared normal, without any sign of mass or ulceration. The scope was straightened and withdrawn back to the esophagus. Given her good response to previous balloon dilations of the gastroesophageal junction, I did use a [employer] incremental balloon to dilate the gastroesophageal junction from 19 mm to 20 mm at the recommended pressure for between 30 and 60 seconds each. Post dilation, there was some heme noted. However, there was no sign of any disruption of any underlying stricture or ring. The scope was withdrawn through the remainder of the esophagus. Again, the proximal esophagus appeared very normal and therefore, dilation was not performed. Previous biopsies have been negative for eosinophilic esophagitis. The scope was withdrawn. She tolerated the procedure well and was returned to recovery area in stable condition. IMPRESSION: 1. Hiatal hernia. 2. Status post balloon dilation of gastroesophageal junction. PLAN: The patient will continue her omeprazole. If things are improved and she is feeling well, she could see me again on a p.r.n. basis. I did advise her to call if she has continued or recurrence of the dysphagia going forward. She will be due for a followup colonoscopy in 2025. MD RAYO Jackson/BLU / [id number]
--- NOTE | 2023-10-08 05:54 | PC.NURSE ---
24hr updated documented on paper chart.
== END 2023-10-07 15:22 | disposition home or self-care (01) ==
PROVIDERS: PCP Physician Assistant; Visit Provider Internal Medicine
PROC: (CPT 43249; principal; 2023-10-07 13:30)
DX: R13.14 Dysphagia, pharyngoesophageal phase (principal); R93.3 Abnormal findings on diagnostic imaging of other parts of digestive tract; K44.9 Diaphragmatic hernia without obstruction or gangrene; K21.9 Gastro-esophageal reflux disease without esophagitis; Z79.899 Other long term (current) drug therapy
CPT/HCPCS: 43249; C1726; J2704